=== PATIENT | female | born 1990 | race Caucasian/White ===

== ENCOUNTER 2024-12-10 09:20 | Emergency (ER) | payer OTHER ==
[~2024-12-10] VITALS: Ht 172.7 cm; Wt 59.9 kg
[2024-12-10] MEDS ORDERED: DIPHENHYDRAMINE HCL 50 MG/ML VIAL 1ML IV ONE (10:00)
[2024-12-10] MEDS ORDERED: METHYLPREDNISOLONE SOD SUCC 125 MG VIAL IV ONE (10:00)
[2024-12-10] MEDS ORDERED: 0.9 % SODIUM CHLORIDE 250 ML IV SCH (10:00)
== END 2024-12-10 13:42 | disposition home or self-care (01) ==
LOC: ER 09:23
DX: R21 Rash and other nonspecific skin eruption (principal); T78.40XA Allergy, unspecified, initial encounter